=== PATIENT | female | born 1975 | race Caucasian/White ===

== ENCOUNTER 2018-06-02 05:24 | Day surgery (SDC) | payer OTHER ==
[2018-05-28 11:00] LABS: CLARITY,URINE CLEAR (Clear); COLOR,URINE YELLOW (Yellow); GLUCOSE, URINE NEGATIVE (Neg); KETONES,URINE NEGATIVE (Neg); LEUKOCYTE ESTERASE ,URINE NEGATIVE (Neg); NITRITES, URINE NEGATIVE (Neg); OCCULT BLOOD,URINE NEGATIVE (Neg); PH,URINE 5.5 (4.8-8.0); PROTEIN,URINE NEGATIVE (Neg); UROBILINOGEN,URINE 0.2 E.U/dL (0.2-1.0)
[2018-05-28 11:02] LABS: UA COLLECTION TYPE CLN CATCH MIDSTREAM
[2018-05-28 11:15] LABS: ALBUMIN 4.1 G/DL (3.4-5.0); ALBUMIN/GLOBULIN RATIO 1.1 (1.1-1.5); ALKALINE PHOSPHATASE 97 IU/L (46-116); BLOOD UREA NITROGEN 14 MG/DL (7-18); BUN/CREATININE RATIO 15.2 (6.6-38.0); CHLORIDE 104 MMOL/L (99-107); CREATININE 0.92 MG/DL (0.40-0.90); PRE OP ALT 35 U/L (30-65); PRE OP ANION GAP 11 (8-16); PRE OP AST 21 U/L (10-37); PRE OP BILIRUB, TOTAL 0.6 MG/DL (0.0-1.0); PRE OP GLUCOSE 86 MG/DL (70-104); PRE OP POTASSIUM 3.7 MMOL/L (3.4-5.1); PRE OP SODIUM 140 MMOL/L (135-145); TOTAL CARBON DIOXIDE 25.1 MMOL/L (24-32); TOTAL PROTEIN 7.9 G/DL (6.4-8.2); eGFR 67 ML/MIN
[2018-05-28 11:20] LABS: BASOPHILS # (AUTO) 0.1 X10'3 (0-0.2); BASOPHILS % (AUTO) 0.8 % (0-1); EOSINOPHILS # (AUTO) 0.1 X10'3 (0-0.9); EOSINOPHILS % (AUTO) 1.7 % (0-6); LYMPHOCYTES # (AUTO) 1.1 X10'3 (1.1-4.8); LYMPHOCYTES % (AUTO) 17.6 % (21-51); MEAN CORPUSCULAR HEMOGLOBIN 32.4 PG (27.0-31.0); MEAN CORPUSCULAR HGB CONC 34.1 % (33.0-36.5); MEAN PLATELET VOLUME 7.6 FL (7.4-10.4); MONOCYTES # (AUTO) 0.3 X10'3 (0-0.9); MONOCYTES % (AUTO) 5.2 % (2-12); NEUTROPHILS # (AUTO) 4.7 X10'3 (1.8-7.7); NEUTROPHILS % (AUTO) 74.7 % (42-75); PRE OP HEMATOCRIT 45.9 % (35.0-45.0); PRE OP HEMOGLOBIN 15.7 g/dL (12.0-16.0); PRE OP PLATELET COUNT 277 X10'3 (140-440); RED BLOOD COUNT 4.83 X10'6 (4.20-5.60); RED CELL DISTRIBUTION WIDTH 13.3 % (11.5-14.5)
[2018-05-28 12:40] LABS: HCG SERUM QL NEGATIVE
[~2018-06-02] VITALS: Ht 157.5 cm; Wt 79.9 kg
[2018-06-02] VITALS (9 sets, daily range): BP systolic 115–133; BP diastolic 72–85
[~2018-06-02 05:24] MED LIST: NO HOME MEDS; ceFAZolin 2gm in dextrose, iso 100 ML IV ONE; ringers solution, lacted 1,000 ML IV SCH
[2018-06-02] MEDS ORDERED: famotidine 20mg tablet PO ONE (05:30)
[2018-06-02] MEDS ORDERED: scopolamine 1.5mg patch.TD72 TD ONE (05:30)
[2018-06-02] MEDS ORDERED: BUPIVAcaine/PF 2.5mg/ml (0.25%) 10ml vial ONE (06:41)
[2018-06-02] MEDS ORDERED: ceFAZolin 1000mg inj ONE (06:41)
[2018-06-02] MEDS ORDERED: fentaNYL/PF 50MCG/1 ML 2ML syringe ONE (07:17)
[2018-06-02] MEDS ORDERED: midazolam 2 mg/2 ml injection ONE (07:17)
[2018-06-02] MEDS ORDERED: LIDOcaine 2% (20mg/ml) 5ml vial ONE (07:19)
[2018-06-02] MEDS ORDERED: glycopyrrolate 0.2mg/ml inj ONE ×2 (07:19→07:21)
[2018-06-02] MEDS ORDERED: ondansetron/PF 4mg/2ml inj ONE ×2 (07:19→07:21)
[2018-06-02] MEDS ORDERED: propofol inj 20 ML IV ONE (07:19)
[2018-06-02] MEDS ORDERED: rocuronium 10mg/ml inj IV ONE ×2 (07:19→07:22)
[2018-06-02] MEDS ORDERED: neostigmine methylsulfate 1 MG/ML 10ml vial ONE ×2 (07:19→07:21)
[2018-06-02] MEDS ORDERED: dexamethasone sod phosphate 4mg/ml inj. ONE (07:21)
[2018-06-02] MEDS ORDERED: sevoflurane 250ml liquid IH ONE (07:37)
[2018-06-02] MEDS ORDERED: ringers solution, lacted 1,000 ML IV SCH (07:41)
[2018-06-02] MEDS ORDERED: ondansetron/PF 4mg/2ml inj IV PRN (07:45)
[2018-06-02] MEDS ORDERED: hydrALAZINE 20mg/ml inj. IV PRN (07:45)
[2018-06-02] MEDS ORDERED: labetalol 20mg/4ml (5mg/ml) syringe IV PRN (07:45)
[2018-06-02] MEDS ORDERED: morphine 4 MG/ML inj SYRINge IV PRN (07:45)
[2018-06-02] MEDS ORDERED: fentaNYL/PF 50MCG/1 ML 2ML syringe IV PRN ×2 (07:45)
--- NOTE | 2018-06-02 09:18 | NUR ---
Received from OR via , accompanied by Anesthesiologist JESS and report given by Anesthesiolgist. AWAKE IN NO RESP DISTRESS SKIN WARM AND DRY HOB ELEVATED ABD SOFT DSG DI, CO ABD PAIN, VS WNL
[2018-06-02] MEDS: morphine 4 MG/ML inj SYRINge IV PRN ×2 (09:26→09:39)
[2018-06-02] MEDS ORDERED: HYDROcodone/acetaminophen 10/325mg tab PO ONE (09:35)
--- NOTE | 2018-06-02 10:48 | NUR ---
AWAKE VS WNL, PAIN DECREASED AFTER IV AND PO MEDS. ABD SOFT, DSG DI, TOLERATES WATER, NO NAUSEA. DISCH INSTR GIVEN TO PT AND AND UNDERSTOOD. PTS PAIN MED SCRIPT CLLD INTO [facility] BY DR BARFIELD OFFICE. VOIDED, HOME WITH .
== END 2018-06-02 10:48 | disposition home or self-care (01) ==
LOC: PAS 05:24
PROVIDERS: ATTEND Surgery
DX: K40.90 Unilateral inguinal hernia, without obstruction or gangrene, not specified as recurrent (principal); K43.9 Ventral hernia without obstruction or gangrene; K66.0 Peritoneal adhesions (postprocedural) (postinfection); I49.8 Other specified cardiac arrhythmias; Z87.19 Personal history of other diseases of the digestive system; Z72.89 Other problems related to lifestyle; Z98.51 Tubal ligation status; Z90.721 Acquired absence of ovaries, unilateral; Z90.49 Acquired absence of other specified parts of digestive tract; Z98.890 Other specified postprocedural states; Z88.8 Allergy status to other drugs, medicaments and biological substances; Z82.49 Family history of ischemic heart disease and other diseases of the circulatory system
CPT/HCPCS: 36415; 49505; 49570; 80053; 81003; 82948; 84703; 85025; J0690; J1100; J2001; J2250; J2270; J2405; J2704; J2710; J3010; J3490; J7120; A7000